=== PATIENT | male | born 1965 | race Caucasian/White ===

== ENCOUNTER 2017-03-11 08:01 | Day surgery (SDC) | payer BC ==
[~2017-03-11 08:01] MED LIST: Lactated Ringers 1,000 ML IV SCH; Sodium Chloride 0.9% 5 ML Syringe FLUSH PRN
[2017-03-11] MEDS ORDERED: Midazolam 1 MG/ML 2 ML SDV ONE (09:10)
[2017-03-11] MEDS ORDERED: Propofol 200 MG/20 ML SDV ONE ×2 (09:10→09:26)
[2017-03-11] MEDS ORDERED: fentaNYL 100 MCG/2 ML SDV ONE (09:10)
[2017-03-11] MEDS ORDERED: Propofol 200 MG/20 ML SDV IV ONE (09:11)
[2017-03-11] MEDS ORDERED: Midazolam 1 MG/ML 2 ML SDV IV ONE (09:11)
[2017-03-11] MEDS ORDERED: fentaNYL 100 MCG/2 ML SDV IV ONE (09:11)
[2017-03-11 15:17] VITALS: BP 103/60
--- NOTE | 2017-03-13 12:10 | PCM.OPNOTE ---
- General Post-Op/Procedure Note Date of Surgery/Procedure: 03/11/17 Operative Procedure(s): Colonoscopy. Findings: Within normal limits, some diverticuli seen in the sigmoid colon. Pre Op Diagnosis: Screening colonoscopy. Family history of Crohn's disease. Post-Op Diagnosis: Long tortuous colon with diverticula in the sigmoid colon. Otherwise negative. Anesthesia Technique: MAC Primary Surgeon: Bradley Holm Complications: None Condition: Good Free Text/Narrative:: INFORMED CONSENT: Patient is here today for elective colonoscopy. All aspects of this procedure have been discussed with the patient. All possible complications also, including possibility of perforation, infection, pain, bleeding and unknown complications. In the event of perforation patient may need to have abdominal exploration, colon resection, colostomy and even was discussed. Anesthetic complications were handled by anesthesia department. The patient understands fully well. Patient did not have any further questions for me at the end of my interview. The patient wishes for me to proceed. PREOPERATIVE DIAGNOSIS/INDICATIONS: [Screening colonoscopy family history of Crohn's disease.] POSTOPERATIVE DIAGNOSIS: [] INSTRUMENT USED: Olympus videocolonoscope. ASA CLASSIFICATION: [2] ANESTHESIA: Continuous EKG, oximetry and intermittent blood pressure and respiratory monitoring were performed throughout the procedure. IV Versed and Fentanyl were administered. PROCEDURE PERFORMED: Colonoscopy POSITIONS OF PATIENT: Left lateral. RECTUM: Normal. SIGMOID COLON: Multiple diverticuli were seen.. DESCENDING COLON: Normal. SPLENIC FLEXURE: Normal. TRANSVERSE COLON: Normal. HEPATIC FLEXURE: Normal. ASCENDING COLON: Normal. CECUM: Normal. ILEOCECAL VALVE: Normal. BIOPSY: None. TOLERANCE: Excellent. COMPLICATIONS: None.
== END 2017-03-11 11:40 | disposition home or self-care (01) ==
LOC: KA.SDS 08:01
PROVIDERS: ATTEND Family Medicine
DX: Z12.11 Encounter for screening for malignant neoplasm of colon (principal); K57.30 Diverticulosis of large intestine without perforation or abscess without bleeding; Z79.82 Long term (current) use of aspirin; Z79.899 Other long term (current) drug therapy; Z88.8 Allergy status to other drugs, medicaments and biological substances; Z95.2 Presence of prosthetic heart valve
CPT/HCPCS: 45378; J2250; J2704; J3010; J7120

== ENCOUNTER 2021-07-30 17:54 | Emergency (ER) | payer BC ==
[2021-07-30] MEDS ORDERED: Sodium Chloride 0.9% 10 ML Syringe FLUSH PRN (18:17)
[2021-07-30 18:51] LABS: ANION GAP 14.9 mmol/L (5-15); CHLORIDE,CL 102 mmol/L (98-107); SODIUM,NA 138 mmol/L (136-145)
[2021-07-30 19:17] VITALS: BP 124/77; PULSE 61
[2021-07-30] MEDS: Diltiazem 120 MG Cap.CD PO ONE (19:29)
== END 2021-07-30 19:40 | disposition home or self-care (01) ==
LOC: KA.ED 17:54
DX: R00.2 Palpitations (principal); I48.91 Unspecified atrial fibrillation; Z88.5 Allergy status to narcotic agent; Z79.82 Long term (current) use of aspirin; Z95.4 Presence of other heart-valve replacement
CPT/HCPCS: 36415; 71045; 80053; 83880; 84484; 85025; 93005; 93010; 99284; 99285-25; A9270-GY